=== PATIENT | female | born 1940 | race Caucasian/White ===

== ENCOUNTER 2017-06-04 12:01 | Emergency (ER) | payer MEDICARE ==
[~2017-06-04] VITALS: Ht 165.1 cm; Wt 64.0 kg
[~2017-06-04 12:01] MED LIST: LIPITOR10 M1 PO; PAROXETINE HCL20 MG PO; PAXIL30 MG PO
[2017-06-04] MEDS ORDERED: VOLTAREN75 MG PO (13:34)
[2017-06-04 13:47] VITALS: BP 141/89
== END 2017-06-04 13:47 | disposition home or self-care (01) ==
LOC: ED 12:01
DX: M16.11 Unilateral primary osteoarthritis, right hip (principal); M70.61 Trochanteric bursitis, right hip; I25.2 Old myocardial infarction; Y93.H9 Activity, other involving exterior property and land maintenance, building and construction

== ENCOUNTER 2017-06-07 10:04 | Emergency (ER) | payer MEDICARE ==
[~2017-06-07] VITALS: Ht 165.1 cm; Wt 65.0 kg
[~2017-06-07 10:04] MED LIST changes: +VOLTAREN75 MG PO
[2017-06-07] MEDS ORDERED: MOTRIN400 MG PO ×2 (10:24→10:36)
[2017-06-07] MEDS ORDERED: VALACYCLOVIR HCL1 GM PO ×2 (10:24→10:36)
[2017-06-07 10:33] VITALS: BP 128/77
== END 2017-06-07 10:33 | disposition home or self-care (01) ==
LOC: ED 10:04
DX: B02.9 Zoster without complications (principal)